=== PATIENT | female | born 1995 | race Caucasian/White ===

== ENCOUNTER 2020-08-22 18:20 | Emergency (ER) | payer BC, OTHER ==
[2020-08-22] MEDS ORDERED: Metoclopramide HCl 10 MG/2 ML VIAL ONE (18:37)
[2020-08-22] MEDS ORDERED: diphenhydrAMINE 50 MG/ML VIAL ONE (18:37)
[2020-08-22] MEDS ORDERED: Acetaminophen 500 MG TAB ONE (18:37)
== END 2020-08-22 19:22 | disposition home or self-care (01) ==
LOC: BURERS 18:20
DX: O99.351 Diseases of the nervous system complicating pregnancy, first trimester (principal); G43.909 Migraine, unspecified, not intractable, without status migrainosus; Z3A.12 12 weeks gestation of pregnancy; Z79.899 Other long term (current) drug therapy
CPT/HCPCS: 96374; 96375; J1200; J2765

== ENCOUNTER 2020-09-12 16:22 | Emergency (ER) | payer OTHER | END 2020-09-12 17:16 | disposition home or self-care (01) | LOC: BURERS 16:22 | DX: O20.0 Threatened abortion (principal); Z3A.15 15 weeks gestation of pregnancy; Z87.891 Personal history of nicotine dependence ==

== ENCOUNTER 2021-01-27 21:03 | Emergency (ER) | payer OTHER ==
[2021-01-27] MEDS ORDERED: predniSONE 20 MG TAB ONE (21:42)
[2021-01-27] MEDS ORDERED: Cephalexin 250 MG CAP ONE ×2 (21:42→21:48)
== END 2021-01-27 21:45 | disposition home or self-care (01) ==
LOC: BURERS 21:03
DX: J01.10 Acute frontal sinusitis, unspecified (principal); J01.00 Acute maxillary sinusitis, unspecified; Z87.891 Personal history of nicotine dependence
CPT/HCPCS: 99283; J7512

== ENCOUNTER 2021-01-29 02:05 | Emergency (ER) | payer OTHER | END 2021-01-29 02:30 | disposition home or self-care (01) | LOC: BURERS 02:05 | DX: O99.513 Diseases of the respiratory system complicating pregnancy, third trimester (principal); J01.90 Acute sinusitis, unspecified; Z87.891 Personal history of nicotine dependence | CPT/HCPCS: 99283 ==

== ENCOUNTER 2021-05-27 08:17 | Emergency (ER) | payer OTHER ==
[2021-05-27] MEDS ORDERED: predniSONE 20 MG TAB ONE (08:43)
== END 2021-05-27 09:51 | disposition home or self-care (01) ==
LOC: BURERS 08:17
DX: J02.9 Acute pharyngitis, unspecified (principal); Z79.899 Other long term (current) drug therapy; Z87.891 Personal history of nicotine dependence
CPT/HCPCS: 87081; 87430; 99283; J7512

== ENCOUNTER 2021-08-09 15:43 | Emergency (ER) | payer OTHER | END 2021-08-09 16:51 | disposition home or self-care (01) | LOC: BURERS 15:43 | DX: G50.1 Atypical facial pain (principal); G89.18 Other acute postprocedural pain; Z87.891 Personal history of nicotine dependence | CPT/HCPCS: 99283 ==

== ENCOUNTER 2021-09-05 05:09 | Emergency (ER) | payer OTHER, SELFPAY ==
[2021-09-05] MEDS ORDERED: Dexamethasone 4 MG TAB ONE (05:37)
[2021-09-05] MEDS ORDERED: Cephalexin 250 MG CAP ONE (05:37)
== END 2021-09-05 05:40 | disposition home or self-care (01) ==
LOC: BURERS 05:09
DX: J02.9 Acute pharyngitis, unspecified (principal); Z87.891 Personal history of nicotine dependence; Z79.899 Other long term (current) drug therapy
CPT/HCPCS: 99283; J8540

== ENCOUNTER 2021-09-18 04:50 | Emergency (ER) | payer OTHER ==
[2021-09-18] MEDS ORDERED: Dexamethasone 10 MG/ML VIAL ONE (05:29)
[2021-09-18] MEDS ORDERED: Acetaminophen 500 MG TAB ONE (05:29)
[2021-09-18 18:34] LABS: SARS-CoV-2 PCR by NAA Not Detected (NotDetected)
== END 2021-09-18 06:10 | disposition home or self-care (01) ==
LOC: BURERS 04:50
DX: J02.9 Acute pharyngitis, unspecified (principal); R05.9 Cough, unspecified; R09.81 Nasal congestion; R06.7 Sneezing; E28.2 Polycystic ovarian syndrome; F17.210 Nicotine dependence, cigarettes, uncomplicated; Z20.822 Contact with and (suspected) exposure to COVID-19; Z79.899 Other long term (current) drug therapy
CPT/HCPCS: 87081; 87430; 99283; J1100; U0003; U0005

== ENCOUNTER 2021-11-18 07:04 | Emergency (ER) | payer MEDICAID, OTHER | END 2021-11-18 08:22 | disposition home or self-care (01) | LOC: BURERS 07:04 | DX: J02.9 Acute pharyngitis, unspecified (principal); F17.210 Nicotine dependence, cigarettes, uncomplicated | CPT/HCPCS: 87081; 87430; 99283 ==